=== PATIENT | male | born 1955 | race Caucasian/White ===

== ENCOUNTER 2023-04-04 08:30 | Outpatient (RCR) | payer OTHER, SELFPAY | END 2023-07-05 09:59 | disposition home or self-care (01) | PROVIDERS: PCP Physician Assistant Medical; Visit Provider Physician Assistant Medical | DX: M25.561 Pain in right knee (principal); Z51.89 Encounter for other specified aftercare | CPT/HCPCS: 97110; 97140; 97162 ==

== ENCOUNTER 2024-08-14 11:31 | Day surgery (SDC) | payer MEDICARE, SELFPAY ==
[2024-08-14] VITALS (13 sets, daily range): BP systolic 101–143; BP diastolic 65–83; PULSE 40–49; RESP 14–18; TEMP 36.1–36.6; O2SAT 16–98; BMI 29.9
[2024-08-14] MEDS: SODIUM CHLORIDE 0.9 % (FLUSH) 10 ML SYRINGE IVF (12:15)
[2024-08-14] MEDS: LACTATED RINGERS 1000 ML 1,000 ML 100 ML IV (12:15)
--- NOTE | 2024-08-14 12:20 | W.PM.H&PU ---
History & Physical Update History & Physical Update H&P Reviewed and patient assessed: No changes noted
[2024-08-14] MEDS: CEFAZOLIN 2 GM in 0.9 % SODIUM CHLORIDE Mini-bag 100 ML IVPB (13:29)
[2024-08-14] MEDS: ROPIVACAINE 0.5% 30 ML 150 MG INJECTION (13:55)
--- NOTE | 2024-08-14 14:03 | PM.ORPRC ---
Procedure Note Date of procedure: 08/14/24 Procedure: PREOPERATIVE DIAGNOSIS: 1. Right knee medial meniscus tear POSTOPERATIVE DIAGNOSIS: 1. Right knee medial meniscus tear 2. 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 Right knee arthroscopic partial medial meniscectomy 2. Right knee arthroscopic chondroplasty medial compartment SURGEON: Conor Mcneil M.D. TRAFFIC MAINTENANCE SUPERVISOR: Miguel Perez PA-C. Of note, an autopsy assistant was critical for this case to aid in patient positioning, knee manipulation, instrument exchange, and closure. ANESTHESIA: Spinal EBL: 2ml TOURNIQUET: 25 minutes at 300 torr COMPLICATIONS: None evident INDICATIONS: The patient is a pleasant 69-year-old male who has experienced right knee pain particularly with any twisting or turning. Physical exam was concerning for medial meniscus tear, this was confirmed on MRI. Additionally, attempted nonoperative management has been tried, and failed. Thus, surgery was recommended. FINDINGS: Complex tearing posterior horn to midbody medial meniscus. Grade 4 chondromalacia medial femoral condyle posterior weight-bearing portion measuring 10 x 15 mm in the A-P and M-L dimensions. In addition, a secondary grade 4 chondral lesion medial femoral condyle distal portion measuring 15 x 6 mm in the same dimensions, respectively. Finally, grade 4 trochlear groove defect measuring 20 x 8 mm in the same dimensions, respectively. DESCRIPTION OF PROCEDURE: After a thorough discussion of risks, benefits, and alternatives, the patient was brought to the operating room and placed upon the operating table. Induction of anesthesia was undertaken as previously noted. 2g iv Ancef was administered within 1 hr of incision preoperatively. Appropriate time-out was performed identifying proper patient, site, and procedure. The right lower extremity was prepped and draped in the appropriate sterile fashion using ChloraPrep. The limb was exsanguinated and tourniquet inflated. Anterolateral and anteromedial portals were established with an 11 blade, and a diagnostic arthroscopy was performed. This identified the findings as noted above. Following the diagnostic arthroscopy, a partial medial menisectomy was performed with the combination of basket forceps and a motorized shaver. Following this, the meniscus was re-probed and found to be stable. Approximately an additional 20 % of the overall meniscus required resection. The loose chondral flaps on the medial femoral condyle were also debrided with the torpedo shaver for chondroplasty purposes. This was around the loose flaps of the more posterior weight-bearing portion medial femoral condyle. At this stage, the shaver was reinserted into the suprapatellar pouch and all remaining meniscal debris was evacuated. Instruments were removed, excess fluid was drained, and closure performed with 4-0 Monocryl with Steri-Strips. Dressings were applied, the tourniquet deflated, and the patient was awoken from anesthesia and transferred to the PACU in stable condition. PLAN: 1. Weightbear as tolerated operative extremity. Crutch / walker ambulation assistance PRN. 2. Ice, acetominophen and/or ibuprofen, and oxycodone for pain as needed. 3. Knee range of motion and quad sets/straight leg raise regularly 4. Follow up with PA visit in 1-2 weeks for a wound check and possibly to initiate physical therapy.
--- NOTE | 2024-08-14 14:13 | W.ANESCHARGE ---
Anesthesia Charges Start Date/Time Anesthesia Start Date: 08/14/24 Anesthesia Start Time: 13:20 Stop Date/Time Anesthesia Stop Date: 08/14/24 Anesthesia Stop Time: 14:18
--- NOTE | 2024-08-14 14:31 | W.ANESCHARGE ---
Anesthesia Charges Start Date/Time Anesthesia Start Date: 08/14/24 Anesthesia Start Time: 13:20 Stop Date/Time Anesthesia Stop Date: 08/14/24 Anesthesia Stop Time: 14:18
== END 2024-08-14 16:23 | disposition home or self-care (01) ==
PROVIDERS: PCP Physician Assistant Medical; Visit Provider Orthopaedic Surgery Sports Medicine
PROC: (CPT 29870; principal; 2024-08-14 13:00)
DX: S83.231A Complex tear of medial meniscus, current injury, right knee, initial encounter (principal); M22.41 Chondromalacia patellae, right knee
CPT/HCPCS: 29881; 01400; J0690; J2250; J2704; J2795; J3010; J7120